=== PATIENT | male | born 1940 | race Caucasian/White ===

== ENCOUNTER → 2017-02-05 | Outpatient (CLI) | payer MEDICARE, OTHER ==
[~2017-02-05] MED LIST: ALBUTEROL17 G1 INH; ASPIRIN81 MG PO; AUGMENTIN875 M1 PO; CELEBREX PO; CLEOCIN HCL300 M1 PO; COMBIVENT INH14.7 GM INH; FLEXERIL PO; FLOVENT HFA12 GM INH; HYDROCODON-ACE1 EAC7 PO; IMDUR-ER30 M1 PO; LASIX20 MG PO; LEVAQUIN PO; LEVAQUIN750 MG PO; LISINOPRIL-HCTZ1 T18 PO; LOPRESSOR PO; LORTAB 5/500 TA1 TA1 PO; MEDROL PO; METHADONE PO; MUCINEX FAST-M1 EAC5 PO; NAPROSYN500 MG PO; NEURONTIN PO; NORVASC10 MG PO; PERCOCET PO; PROTONIX PO; TOPROL XL PO; VICODIN 5/500 T1 TAB PO; ZITHROMAX PO
--- NOTE | ~2017-02-05 | HM ---
Unit #: [id number] #: [id number] Patient: ABRAM DUKES [id number] [address] [place], [place] [address] [id number] O MR#: [id number] NAME: ABRAM DUKES : 1940 SEX: M STUDY DATE/TIME: 02/05/2017 UNIT: [facility] ROOM: STUDY DESCRIPTION: Attending Physician: Girish Siddiqi M.D. Referring Physician: Girish Siddiqi M.D. Primary Care Physician: Laurent Treviño M.D. CARDIOLOGY REPORT EXAM 24-hour Holter monitor. DATE APPLIED 02/05/17 DATE SCANNED 02/12/[address] Shelley Williamson ORDERED [place] [facility] [place]F. FINDINGS 1. Basic rhythm is normal sinus rhythm with an intraventricular conduction delay. Total beats 84,517. Average heart rate 60 per minute. Heart rate varies from 48 per minute at 9:40 a.m. to 88 per minute at 6:25 a.m. 2. There were 147 isolated PVCs noted. 3. There were 58 isolated PACs and 1 atrial couplet noted. 4. No high-grade AV blocks noted. 5. No significant symptoms recorded in the patient's diary. 1. Dictated by... Dorothy Carbone/soraya TD: 02/13/2017 14:41 JOB #: [id number] Unit #: [id number] #: [id number] Patient: ABRAM DUKES CARDIOLOGY REPORT Page 1 of 1 X Lewis Samson MD HOLTER MONITOR REPORT
== END | disposition home or self-care (01) ==
LOC: CECH 12:01
DX: I50.22 Chronic systolic (congestive) heart failure (principal); I34.0 Nonrheumatic mitral (valve) insufficiency; I35.0 Nonrheumatic aortic (valve) stenosis; I35.8 Other nonrheumatic aortic valve disorders; I51.7 Cardiomegaly; I50.30 Unspecified diastolic (congestive) heart failure; I49.3 Ventricular premature depolarization; I49.1 Atrial premature depolarization; I45.9 Conduction disorder, unspecified
CPT/HCPCS: 93225; 93226; 93306